=== PATIENT | female | born 1975 | race Two or more races ===

== ENCOUNTER 2024-04-24 12:23 | Emergency (ER) | payer MEDICAID, OTHER ==
[~2024-04-24] VITALS: Ht 160 cm; Wt 101.0 kg
--- NOTE | 2024-04-24 14:08 | DVH ---
INDICATION:TWISTED LOW BACK TECHNIQUE: 2 views of the lumbar spine were obtained. COMPARISON: None FINDINGS: There are no acute fractures or subluxations. Mild degenerative disc space narrowing at L4-L5. Possible mild neural foraminal stenosis at L4-L5 and L5-S1. IMPRESSION: No acute fracture or subluxation.
[2024-04-24 14:22] VITALS: BP 123/73; PULSE 93; RESP 19; TEMP 98.2; O2SAT 98
--- NOTE | 2024-04-24 14:32 | ED.PDOC ---
Back pain HPI HPI Comments A 48 YEAR OLD FEMALE PRESENTS TO THE ED WITH COMPLAINT OF LOWER BACK PAIN. PATIENT REPORTS THAT SHE HAS BEEN EXPERIENCING A FLARE UP OF HER CHRONIC LOWER BACK PAIN FOR THE PAST 3 WEEKS. PATIENT RELAYS THAT HER PAIN RADIATES DOWN HER RIGHT LEG. PATIENT STATES SHE HAS TAKEN GABAPENTIN AND DICLOFENAC WITH NO RELIEF IN HER PAIN NOTED. THERE IS NO SADDLE ANESTHESIA OR URINARY/FECAL INCONTINENCE. PATIENT DENIES NUMBNESS, WEAKNESS, SHORTNESS OF BREATH, CHEST PAIN, ABDOMINAL PAIN, NAUSEA, VOMITING, HEADACHE, OR OTHER COMPLAINTS. NO OTHER SYMPTOMS OR MODIFYING FACTORS AT THIS TIME. Chief Complaint: Back Pain Time Seen by MD: 14:26 Reviewed Notes: Nurses Notes, Medications, Allergies Allergies: Coded Allergies: NO KNOWN ALLERGIES (Unverified , 04/24/24) Home Meds Active Scripts Hydrocodone-Acetaminophen (Hydrocodone Bitartrate/AC 10-325 mg) 1 Tab Tab, 1 TAB PO BID, #14 TAB Prov:MARYANNE GALLOWAY TATE 04/24/24 Information Source: Patient Mode of Arrival: Ambulatory Timing: Weeks Duration: Since onset Location of Back pain: (R) Lower back Radiates to: Posterior: (R) Buttocks, (R) Thigh Radiates to: Medial: (R) Buttocks, (R) Thigh Radiates to: Lateral: (R) Buttocks, (R) Thigh Severity: Moderate Prehospital treatment: None Quality: Aching Onset: Spontaneous Circumstance: Other (CHRONIC) History of: Chronic Back Pain Modifying Factors: Movement, Walking Associated signs and symptoms: None Past Medical History PAST MEDICAL HISTORY: DM Past Medical History (Other): CHRONIC LOWER BACK PAIN Surgical History: Denies all surgeries STEAM PRESSER History: No Pertinent STEAM PRESSER History Family History Family History: Reviewed,noncontributory to illness Social History Smoker: Non-Smoker Alcohol: Denies ETOH Use Drugs: Denies Drug Use Lives In: Home Constitutional: reports: others (ANXIOUS ); denies: chills, diaphoresis, fatigue, fever, malaise, sweats, weakness EENTM: denies: blurred vision, double vision, ear bleeding, ear discharge, ear drainage, ear pain, ear ringing, eye pain, eye redness, hearing loss, mouth pain, mouth swelling, nasal discharge, nose bleeding, nose congestion, nose pain, photophobia, tearing, throat pain, throat swelling, voice changes, others Respiratory: denies: cough, hemoptysis, orthopnea, SOB at rest, shortness of breath, SOB with excertion, stridor, wheezing, others Cardiovascular: denies: chest pain, dizzy spells, diaphoresis, Dyspnea on exertion, edema, irregular heart beat, left arm pain, lightheadedness, palpitations, PND, syncope, others Gastrointestinal: denies: abdomen distended, abdominal pain, blood streaked bowels, constipated, diarrhea, dysphagia, difficulty swallowing, hematemesis, melena, nausea, poor appetite, poor fluid intake, rectal bleeding, rectal pain, vomiting, others Genitourinary: denies: abnormal vagina bleeding, burning, dyspareunia, dysuria, flank pain, frequency, hematuria, incontinence, pain, , vagina discharge, urgency, others Neurological: denies: dizziness, fainting, headache, left sided numbness, left sided weakness, numbness, paresthesia, pre-existing deficit, right sided numbness, right sided weakness, seizure, speech problems, tingling, tremors, weakness, others Musculoskeletal: reports: back pain (LOW BACK PAIN), muscle pain; denies: gout, joint pain, joint swelling, muscle stiffness, neck pain, others Integumetry: denies: bruises, change in color, change in hair/nails, dryness, laceration, lesions, lumps, rash, wounds, others Allergic/Immunocompromised: denies: Difficulty Healing, Frequent Infections, Hives, Itching, others Hematologic/Lymphatic: denies: anemia, blood clots, easy bleeding, easy bruising, swollen glands, others Endocrine: denies: excessive hunger, excessive sweating, excessive thirst, excessive urination, flushing, intolerance to cold, intolerance to heat, u nexplained weight gain, unexplained weight loss, others Psychiatric: denies: anxiety, bipolar disorder, depression, hopeless, panic disorder, schizophrenia, sleepless, suicidal, others All Other Systems: Reviewed and Negative Physical Exam General Appearance: No Apparent Distress, Obese HEENT: Normal ENT Inspection, PERRL/EOMI, Pharynx Normal Neck: Full Range of Motion, Non-Tender, Normal, Normal Inspection Respiratory: Chest Non-Tender, Lungs Clear, No Accessory Muscle Use, No Respiratory Distress, Normal Breath Sounds Cardiovascular: No Edema, No JVD, No Murmur, No Gallop, Normal Peripheral Pu lses, Regular Rate/Rhythm Breast Exam: Deferred Gastrointestinal: No Organomegaly, Non Tender, No Pulsatile Mass, Normal Bowel Sounds, Soft Genitalia: Deferred Pelvic: Deferred Rectal: Deferred Extremities: No calf tenderness, Normal capillary refill, Normal inspection, Normal range of motion, Non-tender, No pedal edema Musculoskeletal : Location: Bilateral Extremity Location: Back Apperance: Tenderness: Moderate (MUSCLE SPASM ON LOWER BACK, NO BONY TENDERNESS, SWELLING AND DEFORMITY. ) Neurologic: Alert, epic application coordinator II-XII nml as Tested, No Motor Deficits, Normal Affect, Normal Mood, No Sensory Deficits Cerebellar Function: Normal Reflexes: Normal Skin: Dry, Normal Color, Warm Peripheral Pulses: 2+ carotid (R), 2+ carotid (L), 2+ dorsalis pedis (R), 2+ dorsalis pedis (L) Lymphatic: No Adenopathy Was a procedure done? Was a procedure done?: No Back Pain Differential Dx Differential Diagnosis: Musculoskeletal Pain, Strain, Other (CHRONIC LOW BACK PAIN EXACERBATION ) X-Ray, Labs, Meds, VS Vital Signs Date Time Temp Pulse Resp B/P (MAP) Pulse Ox O2 Delivery O2 Flow Rate FiO2 04/24/24 14:22 93 19 98 Room Air 04/24/24 14:22 98.2 93 19 123/73 (90) 98 98.2 04/24/24 13:00 98.3 93 19 123/73 (90) 98 Current Medications Medications (Trade) Dose Ordered Sig/Federico Route Start Time Stop Time Status Last Admin Ketorolac Tromethamine (Toradol Injection) 60 mg ONCE ONCE IM 04/24/24 14:30 04/24/24 14:31 DC 04/24/24 14:35 Acetaminophen/ Hydrocodone Bitart (Lawson 10/325MG Tab) 1 tab ONCE ONCE PO 04/24/24 14:30 04/24/24 14:31 DC 04/24/24 14:35 LUMBAR SPINE XR: FINDINGS: There are no acute fractures or subluxations. Mild degenerative disc space narrowing at L4-L5. Possible mild neural foraminal stenosis at L4-L5 and L5-S1. IMPRESSION: No acute fracture or subluxation. X-Ray, Labs, Meds, VS Comment TORADOL 60MG IM AND NORCO 10/325 PO Images Reviewed?: Images reviewed and evaluated by me Time of 1ST Reevaluation: 15:12 Reevaluation 1ST: Improved Patient Education/Counseling: Diagnosis, Treatment, Need For Follow Up Family Education/Counseling: Diagnosis, Treatment, Need For Follow Up Medical Screening: No EMC Exist At This Time Departure 1 Departure Time of Disposition: 15:20 Impression: Primary Impression: Exacerbation of chronic back pain Additional Impressions: DDD (degenerative disc disease) Qualified Codes: M51.372 - Other intervertebral disc degeneration, lumbosacral region with discogenic back pain and lower extremity pain Lumbar radiculopathy Pain management Disposition: HOME / SELF CARE / HOMELESS Condition: Stable Additional Instructions: FOLLOW-UP WITH PCP IN 1 TO 2 DAYS. TAKE MEDICATIONS PRESCRIBED. RETURN TO ED FOR ANY NEW OR WORSENING SYMPTOMS. e-Prescriptions Hydrocodone-Acetaminophen (Hydrocodone Bitartrate/AC 10-325 mg) 1 Tab Tab 1 TAB PO BID, #14 TAB Prov: MARYANNE GALLOWAY 04/24/24 Discharged With: Self, Relative Critical Care Note Critical Care Time?: No Stability Stability form required: No Heart Score Heart Score: Heart Score Response (Comments) Value History N/A 0 EKG N/A 0 Age N/A 0 Risk Factors N/A 0 Troponin N/A 0 Total 0 I personally scribed for MARYANNE GALLOWAY ([email or web address]) on 04/24/24 at 14:32. Electronically submitted by Robert [email or web address] ([email or web address]). MARYANNE GALLOWAY Apr 24, 2024 14:32
[2024-04-24] MEDS: HYDROcodone-ACET 10/325MG TAB PO ONE (14:35)
[2024-04-24] MEDS: KETOROLAC TROMETH 60MG/2ML VIAL IM ONE (14:35)
[2024-04-24] MEDS ORDERED: HYDR-4798 PO (15:06)
== END 2024-04-24 15:08 | disposition home or self-care (01) ==
LOC: ER 12:23
DX: M51.17 Intervertebral disc disorders with radiculopathy, lumbosacral region (principal); G89.29 Other chronic pain; E11.9 Type 2 diabetes mellitus without complications
CPT/HCPCS: 72100; 96372; 99283; J1885